=== PATIENT | male | born 1995 | race African-American/Black ===

== ENCOUNTER 2019-06-25 00:16 | Emergency (ER) | payer MEDICAID ==
[~2019-06-25] VITALS: Ht 175.3 cm; Wt 68.0 kg
[2019-06-25] MEDS ORDERED: IPRATROPIUM BROMIDE (0.02%) 0.5MG/2.5ML NEB HHN STA (01:27)
[2019-06-25] MEDS ORDERED: ALBUTEROL (0.083%) 2.5MG/3ML NEB HHN STA (01:27)
[2019-06-25 02:42] LABS: BASOPHILS % 0.6 % (0.0-2.0); EOSINOPHILS % 2.2 % (0.0-5.0); HEMATOCRIT. 40.7 % (42.0-52.0); HEMOGLOBIN. 14.3 g/dL (14.0-18.0); LYMPHOCYTES % 36.2 % (20.0-50.0); MEAN CORPUSCULAR HEMOGLOBIN 31.4 pg (28.0-32.0); MEAN PLATELET VOLUME 9.2 fl (7.4-10.4); MONOCYTES % 7.1 % (2.0-8.0); NEUTROPHILS % 53.9 % (40.0-76.0); PLATELET 271 x1000/uL (130-400); RED BLOOD CELL COUNT 4.57 mill/uL (4.7-6.1); RED CELL DISTRIBUTION WIDTH 13.2 % (11.6-14.6)
[2019-06-25 02:49] LABS: CHLORIDE 108 mEq/L (98-107)
[2019-06-25 04:21] VITALS: BP 108/60
== END 2019-06-25 03:50 | disposition home or self-care (01) ==
LOC: ER 00:16
DX: J06.9 Acute upper respiratory infection, unspecified (principal); F12.90 Cannabis use, unspecified, uncomplicated; R07.89 Other chest pain; R07.81 Pleurodynia
CPT/HCPCS: 36415; 71101; 80053; 83880; 84484; 85025; 85379; 87804; 93005; 94640; 99284; J7611; Z7610